=== PATIENT | male | born 1950 | race Caucasian/White ===

== ENCOUNTER 2020-10-28 14:05 | Day surgery (SDC) | payer MEDICARE ==
[~2020-10-28] VITALS: Ht 157.5 cm; Wt 64.2 kg
[2020-10-28 14:41] VITALS: BP 157/87; PULSE 86; TEMP 98.1
[2020-10-28] MEDS ORDERED: PYRIDIUM 100MG100 MG PO (17:14)
[2020-10-28] MEDS ORDERED: NORCO 325 MG-51 TAB PO (17:14)
[2020-10-28 17:45] VITALS: BP 143/71; PULSE 74; TEMP 97.4
[2020-10-28 18:00] VITALS: BP 148/87; PULSE 76
--- NOTE | 2020-10-28 18:00 | NUR ---
PATIENT AND DAUGHTER DO NOT HAVE A PLAN FOR A RIDE HOME TO [place] AFTER THE PATIENT'S PROCEDURE. THE HOSPITAL PROVIDED THEM WITH A [facility] VOUCHER. CALLED AND SCHEDULED [facility] MACHINE INSPECTOR FOR 0.
[2020-10-28 18:30] VITALS: BP 134/83; PULSE 76
--- NOTE | 2020-10-28 18:30 | NUR ---
PATIENT IS NOW EATING. NO C/O N/V SO FAR. TOLERATING LIQUIDS WELL. VOIDING SMALL AMOUNTS OF PINK URINE. PATIENT SHOULD DISCHARGE AROUND 7PM. SECURITY EXPERT TAKING OVER CARE
[2020-10-28 19:00] VITALS: BP 135/61; PULSE 66; TEMP 98.3
--- NOTE | 2020-10-28 19:15 | NUR ---
PT VOIDING RED COLORED URINE. HAS EATEN AND DENIES PAIN. IVF STOPPED AND IV SITE REMOVED, ANGIOCATH INTACT.
[2020-10-28 19:30] VITALS: BP 146/73; PULSE 75
--- NOTE | 2020-10-28 19:35 | NUR ---
PT TAKEN VIA W/C TO [facility]. PERSONAL BELONGINGS SENT WITH PATIENT WELL COPY OF DISCHARGE INSTRUCTIONS. DAUGHTER ACCOMPANIES.
== END 2020-10-28 19:25 | disposition home or self-care (01) ==
LOC: SDCO 14:05 → SURG 17:45 → SDCO 19:25
DX: N20.0 Calculus of kidney (principal)
CPT/HCPCS: OP; C1769; C2617; J0690; J1100; J1885; J2250; J2405; J2704; J3010; J7120; Q9967

== ENCOUNTER 2022-01-26 11:25 | Day surgery (SDC) | payer MEDICARE ==
[~2022-01-26] VITALS: Ht 162.6 cm; Wt 63.5 kg
[~2022-01-26 11:25] MED LIST: NORCO 325 MG-51 TAB PO; PYRIDIUM 100MG100 MG PO
[2022-01-26 11:55] VITALS: BP 137/77; PULSE 71; TEMP 97.3
[2022-01-26 12:55] VITALS: BP 116/75; PULSE 68; TEMP 97.3
[2022-01-26 13:10] VITALS: BP 125/75; PULSE 71
[2022-01-26 13:25] VITALS: BP 133/77; PULSE 69
--- NOTE | 2022-01-26 13:42 | NUR ---
1255: Patient arrived back into [facility] following endo procedure. Report received from KENDALL Yang. Patient alert and awake. Requesting Apple Juice and Vanilla Pudding. Daughter at bedside. Vital signs stable. Call light left within reach. 1310: Patient continues to do well. Tolerating food and drink. 1325: MD in to see patient 1335: Patient tolerated food and drink well. Meets discharge criteria went through discharge instructions with patient and family. Questions answered. IV removed without complications. Patient escorted to patient entrance via ambulation per patient request and left in the care of their family.
== END 2022-01-26 13:45 | disposition home or self-care (01) ==
LOC: SDCO 11:25
DX: K21.00 Gastro-esophageal reflux disease with esophagitis, without bleeding (principal); K22.2 Esophageal obstruction
CPT/HCPCS: C1726; J2704; J7030